=== PATIENT | male | born 1970 | race Caucasian/White ===

== ENCOUNTER → 2021-05-19 | Day surgery (SDC) | payer BC ==
[~2021-05-19] MED LIST: AMITRIPTYLINE H10 MG PO; CHILDREN'S ASPI81 MG PO; CITALOPRAM HBR40 MG PO; CRESTOR5 MG PO; CYCLOBENZAPRINE5 MG PO; LEVOCETIRIZINE D5 MG PO; RABEPRAZOLE SOD20 MG PO
== END | disposition home or self-care (01) ==
LOC: OR 06:04
DX: Z12.11 Encounter for screening for malignant neoplasm of colon (principal); N40.0 Benign prostatic hyperplasia without lower urinary tract symptoms; E78.49 Other hyperlipidemia; K21.9 Gastro-esophageal reflux disease without esophagitis; F32.A Depression, unspecified; Z79.82 Long term (current) use of aspirin; Z79.899 Other long term (current) drug therapy; Z20.822 Contact with and (suspected) exposure to COVID-19
CPT/HCPCS: J2001; J2704; J7120

== ENCOUNTER → 2021-11-05 | Outpatient (CLI) | payer BC | LOC: HEART 5 10-22 11:00 | DX: R00.2 Palpitations (principal) ==